=== PATIENT | female | born 1960 | race Caucasian/White ===

== ENCOUNTER → 2021-11-23 | Outpatient (CLI) | payer OTHER ==
[~2021-11-23] MED LIST: ACIPHEX20 MG PO; ALLEGRA ALLERGY60 MG PO; APPLE CIDER VI600 MG PO; CELEBREX200 MG PO; DETROL2 MG PO; EFFEXOR XR 150150 MG PO; FLAGYL500 MG PO; LEVAQUIN500 MG PO; LOVASTATIN20 MG PO; NAPROSYN EC 50500 MG PO; NORCO 7.5-3251 EACH PO; VANCOCIN 125 M125 MG PO; ZESTRIL/PRINIVI10 MG PO
== END ==
LOC: KOH-I 14:07
DX: Z87.891 Personal history of nicotine dependence (principal); R91.8 Other nonspecific abnormal finding of lung field
CPT/HCPCS: 71271